=== PATIENT | female | born 1980 | race Caucasian/White ===

== ENCOUNTER → 2016-07-25 | Outpatient (REF) | payer OTHER ==
[~2016-07-25] MED LIST: /CIPR75TA PO; /MOXI40TA OR; ACET50TA PO; ANUS2.5C2 EXT; Bacid PO; COLA100C2 OR; DOCU10ELUD PO; FLAG500T OR; IBUP600T26 PO; MOM30SS PO; No Historical Meds; PRENTAB16 PO; PROG-34 PO; VICO5TAB OR; metamucil PO
[2016-07-25 12:26] LABS: ALBUMIN/GLOBULIN RATIO 1.11 (1.00-1.93); ALKALINE PHOSPHATASE 60 U/L (45-117); ALT/SGPT 30 U/L (12-78); ANION GAP 10 MEQ/L (8-16); AST/SGOT 29 U/L (15-37); BILIRUBIN,TOTAL 0.4 MG/DL (0.2-1.0); BLOOD UREA NITROGEN 10 MG/DL (7-18); CALCIUM LEVEL 9.2 MG/DL (8.5-10.1); CARBON DIOXIDE LEVEL 28 MEQ/L (21-32); CHLORIDE LEVEL 100 MEQ/L (98-107); CHOLESTEROL LEVEL 183 MG/DL (<200); CREATININE FOR GFR 0.74 MG/DL (0.55-1.02); GLOMERULAR FILTRATION RATE > 60.0 (>60); GLUCOSE, FASTING 176 MG/DL (70-105); POTASSIUM SERUM 4.5 MEQ/L (3.5-5.1); SODIUM LEVEL 138 MEQ/L (136-145); TOTAL PROTEIN 7.6 GM/DL (6.4-8.2); TRIGLYCERIDES LEVEL 462 MG/DL (<150)
== END ==
LOC: M SFHCCLAY 09:14
PROVIDERS: ATTEND Family Medicine
DX: E11.9 Type 2 diabetes mellitus without complications (principal); E78.1 Pure hyperglyceridemia

== ENCOUNTER → 2016-10-24 | Outpatient (REF) | payer OTHER ==
[2016-10-24 13:24] LABS: ANION GAP 8 MEQ/L (8-16); BLOOD UREA NITROGEN 9 MG/DL (7-18); CARBON DIOXIDE LEVEL 27 MEQ/L (21-32); CHLORIDE LEVEL 99 MEQ/L (98-107); GLOMERULAR FILTRATION RATE > 60.0 (>60); GLUCOSE, FASTING 186 MG/DL (70-105); POTASSIUM SERUM 4.4 MEQ/L (3.5-5.1); SODIUM LEVEL 134 MEQ/L (136-145)
== END ==
LOC: M SFHCCLAY 09:32
PROVIDERS: ATTEND Family Medicine
DX: E11.9 Type 2 diabetes mellitus without complications (principal)

== ENCOUNTER → 2016-11-21 | Outpatient (REF) | payer OTHER ==
[2016-11-21 12:19] LABS: BLOOD UREA NITROGEN 14 MG/DL (7-18); GLOMERULAR FILTRATION RATE > 60.0 (>60)
== END ==
LOC: M LABDRAWC 11:12
PROVIDERS: ATTEND Podiatrist Foot & Ankle Surgery
DX: G57.62 Lesion of plantar nerve, left lower limb (principal)

== ENCOUNTER → 2016-11-28 | Outpatient (CLI) | payer OTHER ==
--- NOTE | 2016-11-28 11:00 | REP ---
MRI of the left foot without and with IV gadolinium: History: Foot pain, plantar fasciitis. Numbness. Gadolinium enhancement dose: 20 mL of intravenous ProHance is administered. MR technique: Axial, coronal and sagittal imaging planes are utilized. T1 and T2-weighted scans were obtained with and without fat saturation. MRI findings: Cortical and medullary bone signal intensity are normal. There is no evidence to suggest tarsal coalition. No juxtaarticular cyst or mass is seen. No significant joint effusion is seen. The Achilles tendon is unremarkable. No other evidence of tendinopathy is seen. There is some focal thickening of the plantar fascia just anterior to the calcaneal insertion consistent with plantar fasciitis. There is subtle edema at the insertion on the calcaneus. There is no evidence of soft tissue mass to suggest Ruiz's neuroma or other lesion. No abnormal gadolinium enhancement is appreciated. Impression: Mild focal thickening of the plantar fascia consistent with plantar fasciitis. Otherwise negative. Signed by Melo Birmingham MD 11/28/2016 12:26 P
== END ==
LOC: M RAD 08:36
PROVIDERS: ATTEND Podiatrist Foot & Ankle Surgery
DX: M72.2 Plantar fascial fibromatosis (principal)